=== PATIENT | female | born 1990 | race Caucasian/White ===

== ENCOUNTER 2016-06-19 21:24 | Emergency (ER) | payer MEDICAID, OTHER ==
[~2016-06-19] VITALS: Ht 165.1 cm; Wt 61.4 kg
[~2016-06-19 21:24] MED LIST: BIRTH CONTROL PILLS PO
[2016-06-19 21:26] VITALS: BP 110/70; PULSE 72; RESP 18; O2SAT 96
--- NOTE | 2016-06-19 21:33 | ED.REPORT ---
HPI-URI / Cough / Cold Date of Service Jun 19, 2016 ED Provider: MD Doron This is a 25 year old female who is 12 weeks presenting to the ED complaining of non-productive cough that began 3 days ago. Reports rhinorrhea and chills. Denies SOB, nausea, vomiting, or abdominal pain. Nursing Notes Stated Complaint: COUGH Chief Complaint: FLU/Cold Symptoms Nursing Notes Reviewed: Yes Allergies: Coded Allergies: No Known Allergies (Verified , 09/01/04) Uncoded Allergies: No Known Allergies (Allergy, Unknown, 11/20/04) Scheduled ([ Control Pills]) PO DAILY Scheduled PRN Guaifenesin (Guaifenesin) 400 Mg Tablet 400 MG PO TID PRN PRN For Cough General Time Seen by MD: 21:32 Chief Complaint Cough, non-productive Hx Obtained From: Patient Arrived By: Walk-in Onset Occurred: 3 days ago Symptom Duration: Since onset Severity: Current: No pain currently Pertinent Negative: Pt denies other symptoms Recent Healthcare: No recent doctor visit, No recent hospitalization Similar Sx Previous: No Past Medical History Past Medical History 12 weeks Past Surgical History Denies Ambulatory Status Independent Review of Systems Constitutional: Reports: Chills, Denies: Fever Respiratory: Reports: Non-productive cough, Denies: Shortness of breath GI: Denies: Abdominal pain, Nausea, Vomiting Allergy / Immune: Reports: Rhinorrhea Complete sys rev & neg: except as marked. Physical Exam Initial Vital Signs Vital Signs (First) Date Time Temp Pulse Resp B/P Pulse Ox O2 Delivery O2 Flow Rate FiO2 06/19/16 21:26 36.4 72 18 110/70 96 Room Air Initial VS: Reviewed Head / Eyes: Atraumatic, Normocephalic, PERRL Neck: Supple, Non-tender, Full range of motion Cardiovascular: Regular rate & rhythm, Heart sounds normal, Intact distal pulses Extremities: Vascular intact, Neuro intact, No swelling, No tenderness Skin: Warm, Dry, No cyanosis Neurologic: Alert, Oriented, Nonfocal Psychiatric: Mood/affect normal, Behavior normal, Normal thought content General/Constitutional: Awake, Alert, Well appearing ENT: Airway patent, Mucous membranes moist, Pharynx NL, Tympanic membs NL, Ext aud canal NL, Nose exam NL, No sinus tenderness Respiratory / Chest: Breath sounds NL, Breath sounds = bilat, No respiratory distress, No rales, No rhonchi, No wheezing Interpretation & Diagnostics Lab Results Interpretation Test 06/19/16 22:08 Hold Urine Received (Received) Re-Eval/Medical Decision Med Decision/Clinical Course 25-year-old female approximately 3 months here with several days of runny nose, stuffy nose, cough without any associated shortness of breath, chest pain, fevers. Differential diagnosis includes influenza versus RSV versus viral upper respiratory infection versus pneumonia. At this time, given patient's normal vital signs, and lack of other symptoms, I do not feel she requires chest x-ray. Her flu test was negative. She is amenable to discharge with guaifenesin for her cough and follow-up with her primary care physician. She has been given very strict return precautions. Re-Evaluation/Progress : Time of Eval: 22:00 Re-Evaluation/Progress Note: Discussed plan for d/c on initial examination Counseled Regarding: Diagnosis, Need for follow-up, When/why to return to ED Discharge & Departure Impression: Primary Impression: Cough Disposition: Home Discharge Condition All VS Reviewed: Yes Condition: Stable Patient Instructions: Upper Respiratory Infection (ED) Additional Instructions: Take guaifenesin as prescribed. Follow-up with your primary care provider. Return to the emergency department for any new or worsening symptoms Referrals: NOPCP (PCP) Scribe Attestation Portions of this note were transcribed by Floyd Priest. I, Dr. Sal personally performed the history, physical exam and medical decision-making; I reviewed and confirmed the accuracy of the information in the transcribed note. Signed by: anjel Riggs. 06/19/2016, 22:00. Dorothy Sal MD Jun 19, 2016 21:33 FLOYD PRIEST Jun 19, 2016 21:36
[2016-06-19] MEDS ORDERED: GUAI400T57 PO (22:01)
[2016-06-19 22:44] VITALS: BP 112/72; PULSE 70; RESP 16; O2SAT 98
== END 2016-06-19 22:46 | disposition home or self-care (01) ==
LOC: SED 21:24
DX: R05 Cough (principal); Z3A.12 12 weeks gestation of pregnancy; F17.210 Nicotine dependence, cigarettes, uncomplicated

== ENCOUNTER 2016-07-02 16:01 | Emergency (ER) | payer OTHER ==
[~2016-07-02] VITALS: Ht 167.6 cm; Wt 62.7 kg
[~2016-07-02 16:01] MED LIST changes: +GUAI400T57 PO
[2016-07-02 16:26] VITALS: BP 105/72; PULSE 78; O2SAT 97
--- NOTE | 2016-07-02 16:52 | ED.REPORT ---
HPI-Preg Under 20 Weeks Date of Service Jul 02, 2016 ED Provider: Estiven Rivera DO 25 year old female who is 14 weeks presents to the ER accompanied by her boyfriend and mother due to concern for miscarriage. Yesterday the patient received an ultrasound that indicated miscarriage within the first month of . Patient denies vaginal bleeding, and pelvic/abdominal pain. Nursing Notes Stated Complaint: COMPLICATION Chief Complaint: & Delivery Nursing Notes Reviewed: Yes Allergies: Coded Allergies: No Known Allergies (Verified , 09/01/04) Scheduled ([ Control Pills]) PO DAILY Scheduled PRN Guaifenesin (Guaifenesin) 400 Mg Tablet 400 MG PO TID PRN PRN For Cough General Time Seen by Provider: 16:52 Chief Complaint Request for preg check, Other (Concern for miscarriage) Hx Obtained From: Patient Arrived By: Walk-in Associated with: Denies: Vaginal bleeding, Vaginal discharge Past Medical History Past Medical History 07/02/2016 - 14 weeks Past Surgical History Denies Ambulatory Status Independent Review of Systems GI: Denies: Abdominal pain, Nausea, Vomiting Female: Reports: , Denies: Flank pain, Pelvic pain, Vaginal bleeding - abnl, Vaginal discharge Complete sys rev & neg: except as marked. Physical Exam Initial Vital Signs Vital Signs (First) Date Time Temp Pulse Resp B/P Pulse Ox O2 Delivery O2 Flow Rate FiO2 07/02/16 16:26 36.9 78 105/72 97 Room Air 07/02/16 19:13 18 Initial VS: Reviewed Head / Eyes: Atraumatic, Normocephalic Neck: Supple, Non-tender, Full range of motion Respiratory: Breath sounds normal, Clear to auscultation, No respiratory distress Cardiovascular: Regular rate & rhythm, Heart sounds normal, Intact distal pulses Extremities: Vascular intact, Neuro intact, No swelling, No tenderness Skin: Warm, Dry, No cyanosis Neurologic: Alert, Oriented, Nonfocal General/Constitutional: Awake, Alert, Well developed, Well nourished Female Genitourinary: Exam deferred : Exam deferred Interpretation & Diagnostics Lab Results Interpretation Test 07/02/16 18:32 07/02/16 19:00 Hold Urine Received (Received) HCG Beta Subunit [id number]/mL Hold [place]ue Top Tube Received (Received) Re-Eval/Medical Decision Med Decision/Clinical Course 25-year-old who was diagnosed yesterday with first trimester demise presents wanting to know the next steps for her . I discussed with her at length that this type of thing is unfortunate but nonemergent and that she could follow up with her JUDICIAL LAW CLERK next week. She is Rh+ and has had no bleeding. I did check a Quant and suggested she might consider a repeat ultrasound prior to the decision to terminate her to help her be more confident that this is truly a first trimester demise. She will discuss this further with her JUDICIAL LAW CLERK. Patient understands and agrees with this plan Source of Hx: Old records Re-Evaluation/Progress #1: Time of Eval: 17:45 Re-Evaluation/Progress Note: Discussed ultrasound results from yesterday and plan to discharge after blood work is resulted. Patient is amenable to the plan. Return precautions given. All other questions addressed. Re-Evaluation/Progress #2: Time of Eval: 18:51 Re-Evaluation/Progress Note: Labs have not been drawn. Discussed plan to discharge after blood draw. Counseled Regarding: Diagnosis, Lab results, Need for follow-up, When/why to return to ED Discharge & Departure Primary Impression: demise Disposition: Home Discharge Condition All VS Reviewed: Yes Condition: Stable Patient Instructions: Threatened Miscarriage (DC) Additional Instructions: I am sorry to hear that you have received such concerning news. Follow up with your OBGYN this week to discuss treatment options and possibly arrange a repeat ultrasound. We az your blood work here today and your JUDICIAL LAW CLERK will be able to follow-up with these results. Return to the ER if you develop any pain, vaginal bleeding, or other concerning symptoms. Referrals: NOPCP (PCP) Patsy Valles MD Attestation Portions of this note were transcribed by Leonel Lanier. I, Dr. Rivera personally performed the history, physical exam and medical decision-making; I reviewed and confirmed the accuracy of the information in the transcribed note. Signed by: Aninta Mendez, 07/02/2016 and 17:49 copies to: Patsy Valles MD, Gary R DO Jul 02, 2016 16:52 LEONEL LANIER Jul 02, 2016 17:49
[2016-07-02 19:13] VITALS: BP 107/70; PULSE 78; RESP 18; O2SAT 99
== END 2016-07-02 19:15 | disposition home or self-care (01) ==
LOC: SED 16:01
DX: O36.4XX0 Maternal care for intrauterine death, not applicable or unspecified (principal); Z3A.14 14 weeks gestation of pregnancy